=== PATIENT | male | born 1990 ===

== ENCOUNTER 2017-08-15 14:09 | Emergency (ER) | payer OTHER ==
[2017-08-15] MEDS ORDERED: HYDROmorphone 1 mg/ml ISec IM STA (14:17)
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
[2017-08-15] MEDS ORDERED: Morphine 4 MG/ML VIAL ONE ×2 (14:49)
--- NOTE | 2017-08-15 15:53 | RAD ---
PROCEDURE: Left Knee Radiographs. HISTORY: Pain. COMPARISON: None. FINDINGS: BONES: No acute fracture. JOINTS: Unremarkable. JOINT EFFUSION: Moderate joint effusion. OTHER FINDINGS: None. IMPRESSION: Moderate joint effusion without demonstrated fracture or dislocation.
[2017-08-15 16:16] VITALS: BP 142/90; PULSE 90; RESP 18; TEMP 98.1
[2017-08-15 16:46] VITALS: O2SAT 99
== END 2017-08-15 16:58 | disposition home or self-care (01) ==
LOC: C.ER 14:09
DX: S83.005A Unspecified dislocation of left patella, initial encounter (principal); X50.1XXA Overexertion from prolonged static or awkward postures, initial encounter; Y93.01 Activity, walking, marching and hiking; Y92.9 Unspecified place or not applicable
CPT/HCPCS: 73562; 96374; 99285; J2270